=== PATIENT | female | born 2000 | race Caucasian/White ===

== ENCOUNTER 2022-03-07 07:43 | Outpatient (CLI) | payer OTHER ==
[~2022-03-07] VITALS: Ht 170.2 cm; Wt 67.2 kg
[2022-03-07 08:28] VITALS: BP 116/70; PULSE 54; TEMP 98.1
[2022-03-07] MEDS ORDERED: PROAMATINE 5MG T5 MG PO (11:41)
[2022-03-07 12:00] VITALS: BP 116/69; PULSE 52
--- NOTE | 2022-03-07 12:10 | NUR ---
pt adamate about talking to Dr. Howard again prior to discharge. Dr. Howard has spoken to pt 2x since completed procedure. Pt states "I will wait here in the room until he comes in here, I hear his voice". Pt came to nurses station to talk to Dr. Howard again prior to exiting. Pt tolerated procedure without complication.
== END 2022-03-07 12:10 | disposition home or self-care (01) ==
LOC: COL.CAR 07:43
DX: R42 Dizziness and giddiness (principal)